=== PATIENT | male | born 1990 | race Caucasian/White ===

== ENCOUNTER → 2017-12-17 | Outpatient (CLI) | payer BC | LOC: M ADAMS 16:31 | DX: M53.3 Sacrococcygeal disorders, not elsewhere classified (principal) | CPT/HCPCS: 72100 ==

== ENCOUNTER → 2017-12-17 | Outpatient (REF) | payer BC ==
[2017-12-17 19:11] LABS: MEAN CORPUSCULAR HEMOGLOBIN 29.2 pg (27.0-33.0); MEAN CORPUSCULAR HGB CONC 34.1 g/dl (32.0-36.5); MEAN CORPUSCULAR VOLUME 85.8 fl (80.0-96.0); PLATELET COUNT, AUTOMATED 258 10^3/uL (150-450); RED BLOOD COUNT 5.13 10^6/uL (4.30-6.10); RED CELL DISTRIBUTION WIDTH 12.1 % (11.5-14.5); WHITE BLOOD COUNT 7.6 10^3/uL (4.0-10.0)
[2017-12-17 19:35] LABS: ANION GAP 7 MEQ/L (8-16); BLOOD UREA NITROGEN 22 MG/DL (7-18); CALCIUM LEVEL 9.4 MG/DL (8.5-10.1); CARBON DIOXIDE LEVEL 28 MEQ/L (21-32); CHLORIDE LEVEL 105 MEQ/L (98-107); CREATININE FOR GFR 1.06 MG/DL (0.70-1.30); GLOMERULAR FILTRATION RATE > 60.0 (>60); GLUCOSE, FASTING 83 MG/DL (70-100); POTASSIUM SERUM 4.4 MEQ/L (3.5-5.1); SODIUM LEVEL 140 MEQ/L (136-145)
[2017-12-17 19:43] LABS: ERYTHROCYTE SEDIMENTATION RATE 1 mm/hr (0-15)
== END ==
LOC: M SFHCADAM 16:13
DX: M53.3 Sacrococcygeal disorders, not elsewhere classified (principal)
CPT/HCPCS: 80048

== ENCOUNTER → 2022-04-16 | Outpatient (REF) | payer BC, OTHER | LOC: M SFHCPLAZ 10:21 | PROVIDERS: ATTEND Physician Assistant | DX: J02.9 Acute pharyngitis, unspecified (principal) ==

== ENCOUNTER 2023-02-11 18:53 | Emergency (ER) | payer BC, OTHER ==
[~2023-02-11] VITALS: Ht 177.8 cm; Wt 75.4 kg
[2023-02-11 19:47] LABS: HEMATOCRIT 39.5 % (42.0-52.0); HEMOGLOBIN 13.5 g/dl (13.5-17.5); MEAN CORPUSCULAR HEMOGLOBIN 29.1 pg (27.0-33.0); MEAN CORPUSCULAR HGB CONC 34.2 g/dl (32.0-36.5); MEAN CORPUSCULAR VOLUME 85.1 fl (80.0-96.0); PLATELET COUNT, AUTOMATED 172 10^3/uL (150-450); RED BLOOD COUNT 4.64 10^6/uL (4.30-6.10); WHITE BLOOD COUNT 7.4 10^3/uL (4.0-10.0)
[2023-02-11 20:05] LABS: ALBUMIN 3.8 G/DL (3.2-5.2); ALKALINE PHOSPHATASE 59 U/L (46-116); ALT/SGPT 33 U/L (7.0-40); AST/SGOT 29 U/L (<34); BILIRUBIN,TOTAL 0.4 MG/DL (0.3-1.2); BLOOD UREA NITROGEN 12 MG/DL (9-23); CALCIUM LEVEL 9.2 MG/DL (8.5-10.1); CARBON DIOXIDE LEVEL 27 MMOL/L (20-31); CHLORIDE LEVEL 102 MMOL/L (98-107); CREATININE FOR GFR 0.79 MG/DL (0.70-1.30); GLOMERULAR FILTRATION RATE > 60.0 (>60); GLUCOSE, FASTING 119 MG/DL (60-100); POTASSIUM SERUM 3.9 MMOL/L (3.5-5.1); SODIUM LEVEL 136 MMOL/L (136-145); TOTAL PROTEIN 6.5 G/DL (5.7-8.2)
[2023-02-11 20:18] LABS: LYMPHOCYTES 6 % (16-44); MONOCYTES 8 % (0-5); NEUTROPHILS 86 % (28-66); PLATELET ESTIMATE NORMAL (NORMAL)
[2023-02-11 20:21] LABS: RSV AMPLIFICATION NEGATIVE (NEGATIVE)
[2023-02-11] MEDS ORDERED: KETOROLAC 30 MG/ML 1ML VIAL IV ONE (20:40)
[2023-02-11] MEDS ORDERED: cefTRIAXone SOD 2 GM in D5W MINI-BAG PLUS 50 ML IV ONE (22:15)
[2023-02-12 00:22] LABS: CSF TUBE# TP TUBE 1; TOTAL PROTEIN,CSF 29.2 MG/DL (15-45)
[2023-02-12 00:24] LABS: CSF TUBE# GLU TUBE 1
[2023-02-12 01:35] LABS: APPEARANCE, CSF CLEAR (CLEAR); COLOR, CSF COLORLESS (COLORLESS)
[2023-02-12 01:36] LABS: CSF TUBE# CELL CNT TUBE 1
[2023-02-12 01:45] LABS: APPEARANCE, CSF CLEAR (CLEAR); COLOR, CSF COLORLESS (COLORLESS); CSF TUBE# CELL CNT TUBE 4
[2023-02-12] MEDS ORDERED: KETO10TAB PO (02:21)
[2023-02-12] MEDS ORDERED: KETOROLAC TROMETHAMINE 10 MG TAB PO ONE (02:35)
[2023-02-12 02:39] VITALS: BP 110/64; TEMP 99.1; O2SAT 97
== END 2023-02-12 02:45 | disposition home or self-care (01) ==
LOC: M ED 18:53
DX: M54.2 Cervicalgia (principal); R50.81 Fever presenting with conditions classified elsewhere; M54.50 Low back pain, unspecified; F17.200 Nicotine dependence, unspecified, uncomplicated; Z79.1 Long term (current) use of non-steroidal anti-inflammatories (NSAID); Z79.899 Other long term (current) drug therapy
CPT/HCPCS: 70450; 71046; 80053; 82945; 83605; 84157; 85025; 86618; 87040; 87070; 87205; 87483; 87486; 87581; 87631; 87633; 87798; 89050; 96374; 96375; 99285; J0696; J1885

== ENCOUNTER 2023-02-14 08:03 | Emergency (ER) | payer BC ==
[~2023-02-14] VITALS: Ht 177.8 cm; Wt 74.3 kg
[~2023-02-14 08:03] MED LIST: KETO10TAB PO
[2023-02-14] MEDS ORDERED: NS 1,000 ML IV ONE (10:15)
[2023-02-14] MEDS ORDERED: FIORICET TAB PO ONE (10:15)
[2023-02-14] MEDS ORDERED: DOXY100C3 PO (10:32)
[2023-02-14 10:47] LABS: BASO % 0.4 % (0.0-1.0); EOS # 0.1 10^3/uL (0.0-0.5); EOS % 1.1 % (0.0-3.0); HEMATOCRIT 43.2 % (42.0-52.0); HEMOGLOBIN 14.5 g/dl (13.5-17.5); LYMPH # 1.4 10^3/uL (1.5-5.0); LYMPH % 26.5 % (24.0-44.0); MEAN CORPUSCULAR HEMOGLOBIN 28.8 pg (27.0-33.0); MEAN CORPUSCULAR HGB CONC 33.6 g/dl (32.0-36.5); MEAN CORPUSCULAR VOLUME 85.7 fl (80.0-96.0); MONO # 0.4 10^3/uL (0.0-0.8); MONO % 8.3 % (2.0-8.0); NEUTROPHILS # 3.4 10^3/uL (1.5-8.5); NEUTROPHILS % 63.5 % (36.0-66.0); PLATELET COUNT, AUTOMATED 221 10^3/uL (150-450); RED BLOOD COUNT 5.04 10^6/uL (4.30-6.10); WHITE BLOOD COUNT 5.3 10^3/uL (4.0-10.0)
[2023-02-14 11:12] LABS: BLOOD UREA NITROGEN 10 MG/DL (9-23); CALCIUM LEVEL 9.2 MG/DL (8.5-10.1); CARBON DIOXIDE LEVEL 29 MMOL/L (20-31); CHLORIDE LEVEL 104 MMOL/L (98-107); CREATININE FOR GFR 0.72 MG/DL (0.70-1.30); GLOMERULAR FILTRATION RATE > 60.0 (>60); GLUCOSE, FASTING 95 MG/DL (60-100); POTASSIUM SERUM 4.8 MMOL/L (3.5-5.1); SODIUM LEVEL 142 MMOL/L (136-145)
[2023-02-14] MEDS ORDERED: FIOR1CAP PO (11:56)
[2023-02-14 12:02] VITALS: BP 122/68; TEMP 97.3; O2SAT 99
== END 2023-02-14 12:09 | disposition home or self-care (01) ==
LOC: M ED 08:03
DX: G97.1 Other reaction to spinal and lumbar puncture (principal); R51.9 Headache, unspecified; F10.10 Alcohol abuse, uncomplicated; A69.20 Lyme disease, unspecified; Z79.1 Long term (current) use of non-steroidal anti-inflammatories (NSAID); Z79.899 Other long term (current) drug therapy

== ENCOUNTER 2024-06-06 13:27 | Emergency (ER) | payer BC ==
[~2024-06-06] VITALS: Ht 180.3 cm; Wt 76.4 kg
[~2024-06-06 13:27] MED LIST changes: +DOXY100C3 PO; +FIOR1CAP PO
[2024-06-06 14:46] LABS: BASO % 0.4 % (0.0-1.0); EOS # 0.2 10^3/uL (0.0-0.5); EOS % 2.7 % (0.0-3.0); HEMATOCRIT 41.4 % (42.0-52.0); HEMOGLOBIN 14.9 g/dl (13.5-17.5); LYMPH # 1.2 10^3/uL (1.5-5.0); LYMPH % 14.6 % (24.0-44.0); MEAN CORPUSCULAR HEMOGLOBIN 30.7 pg (27.0-33.0); MEAN CORPUSCULAR VOLUME 85.2 fl (80.0-96.0); MONO # 0.8 10^3/uL (0.0-0.8); MONO % 10.2 % (2.0-8.0); NEUTROPHILS # 5.7 10^3/uL (1.5-8.5); NEUTROPHILS % 71.8 % (36.0-66.0); PLATELET COUNT, AUTOMATED 270 10^3/uL (150-450); RED BLOOD COUNT 4.86 10^6/uL (4.30-6.10); WHITE BLOOD COUNT 7.9 10^3/uL (4.0-10.0)
[2024-06-06 15:23] LABS: BLOOD UREA NITROGEN 15 MG/DL (9-23); CALCIUM LEVEL 9.6 MG/DL (8.5-10.1); CARBON DIOXIDE LEVEL 28 MMOL/L (20-31); CHLORIDE LEVEL 103 MMOL/L (98-107); CK-MB VALUE MASS < 1.0 NG/ML (<3.6); CREATININE FOR GFR 0.81 MG/DL (0.70-1.30); GLOMERULAR FILTRATION RATE > 60.0 (>60); GLUCOSE, FASTING 81 MG/DL (60-100); SODIUM LEVEL 138 MMOL/L (136-145)
[2024-06-06 15:24] LABS: CPK CREATINE PHOSPHOKINASE 164 U/L (46-171)
[2024-06-06] MEDS: ASPIRIN 325 MG TAB PO ONE (15:35)
[2024-06-06 16:00] LABS: CPK CREATINE PHOSPHOKINASE 154 U/L (46-171)
[2024-06-06 16:39] LABS: CK-MB VALUE MASS < 1.0 NG/ML (<3.6); MB/CK RELATIVE INDEX 0.64 (< OR =4)
[2024-06-06 16:58] VITALS: BP 120/69; TEMP 98; O2SAT 100
== END 2024-06-06 17:04 | disposition home or self-care (01) ==
LOC: M ED 13:27
DX: R07.9 Chest pain, unspecified (principal)